=== PATIENT | female | born 1955 | race Caucasian/White ===

== ENCOUNTER → 2019-12-08 | Outpatient (CLI) | payer OTHER | LOC: NUC 09:39 | DX: Z13.820 Encounter for screening for osteoporosis (principal); M84.364A Stress fracture, left fibula, initial encounter for fracture; M81.0 Age-related osteoporosis without current pathological fracture; Z78.0 Asymptomatic menopausal state; X58.XXXA Exposure to other specified factors, initial encounter; Y93.89 Activity, other specified; Y92.89 Other specified places as the place of occurrence of the external cause; Y99.8 Other external cause status ==